=== PATIENT | female | born 1960 | race Caucasian/White ===

== ENCOUNTER 2019-06-24 20:15 | Inpatient (IN) | payer OTHER ==
[~2019-06-24] VITALS: Ht 165.1 cm; Wt 48.0 kg
[~2019-06-24 20:15] MED LIST: NO HOME MEDICATIONS; PREDNISONE10 MG PO
[2019-06-24 22:09] LABS: BASO # 0.1 (0.0-0.2); BASO % 0.4 % (0.0-2.0); EOS # 0.1 (0.0-0.7); EOS % 0.4 % (0-4.0); GRAN # 11.6 (1.4-6.5); GRAN % 89.3 % (42.2-75.2); HEMOGLOBIN 12.1 g/dl (12.5-16.0); LYMPH % 7.5 % (20.0-51.0); MEAN CELL VOLUME 98 fl (80.0-100.0); MEAN CORPUSCULAR HEMOGLOBIN 33 pg (27.0-31.0); MEAN CORPUSCULAR HGB CONC 33 g/dl (33.0-37.0); MEAN PLATELET VOLUME 10.5 fl (7.4-10.4); MONO # 0.2 (0.1-0.6); MONO % 1.7 % (1.7-9.3); PLATELET COUNT 387 K/mm3 (130-400); RED BLOOD COUNT 3.71 M/mm3 (4.10-5.30); REDCELL DISTRIBUTION WIDTH-CV 14.7 % (11.5-14.5)
[2019-06-24 22:13] LABS: ALBUMIN 3.9 gm/dL (3.5-5.0); BILIRUBIN,TOTAL 0.3 mg/dL (0.0-1.0); CALCIUM 9.3 mg/dL (8.4-10.2); CREATININE, serum 0.51 (0.52-1.25); TOTAL PROTEIN 7.1 gm/dL (6.4-8.2)
[2019-06-24 22:28] LABS: TROPONIN-I 0.607 ng/mL (0.000-0.035)
[2019-06-24 22:31] LABS: HEMATOCRIT 36.5 % (37.0-47.0)
[2019-06-24 23:36] LABS: ARTERIAL BLD GAS O2 SATURATION 94.6 % (92-100); ARTERIAL BLD GAS TCO2 CT 20.9; ARTERIAL BLOOD GAS BASE EXCESS -4.9 (-2-2); ARTERIAL BLOOD GAS HCO3 19.8 meq/L (22-26); ARTERIAL BLOOD GAS PCO2 35.7 mmHg (35-45); ARTERIAL BLOOD GAS PO2 73.5 mmHg (80-100); ARTERIAL BLOOD GAS pH 7.36 (7.35-7.45)
[2019-06-25] VITALS (836 sets, daily range): BP systolic 93–131; BP diastolic 69–105; PULSE 87–129; TEMP 97.2–98.2; O2SAT 87–100
--- NOTE | 2019-06-25 00:33 | NUR ---
Patient arrived on ER bed accompanied by ER nurse. Patient alert and asking questions related to POC. Denies pain. Vitals taken. Patient transferred bed-to-bed with the help of ER nurse, charge nurse, and self.
[2019-06-25 05:35] LABS: MUCOUS Present /lpf; PH 5 (5-8); URINE APPEARANCE Hazy; URINE BACTERIA None Seen /hpf; URINE BILIRUBIN Negative (NEGATIVE); URINE BLOOD Negative (NEGATIVE); URINE COLOR Yellow; URINE GLUCOSE Negative (NEGATIVE); URINE KETONE Trace (NEGATIVE); URINE LEUKOCYTE ESTERASE 1+ (NEGATIVE); URINE NITRATE Negative (NEGATIVE); URINE PROTEIN(semi-quant) Negative (NEGATIVE); URINE UROBILINOGEN Negative (NEGATIVE)
[2019-06-25 05:36] LABS: COLLECTION METHOD CLEAN CATCH
--- NOTE | 2019-06-25 06:18 | NUR ---
Vancomycin Initial Dosing Pharmacy Note Ordering provider: Mckay Núñez MD Indication/duration: 7 DAYS Relevant comorbidities: TOBACCO/METASTATIC DISEASE OR LUNG NODULE/ LABS: WBC 13/SCR 0.5/TROP0.9/LA2.5 Recommendation: Loading dose: 1GM Maintenance dose: 750 mg every 12 hours Trough goal: 15-20 ug/mL
--- NOTE | 2019-06-25 08:00 | NUR ---
Shift assessment complete at this time. Plan of care reviewed at bedside with patient at bedside. Additional time taken to address any other needs or concerns. Vitals stable at this time. Pt denies pain or any other discomfort. Bed in low position, call light within reach. Will continue to monitor.
--- NOTE | 2019-06-25 09:00 | NUR ---
R Thoracentesis completed at this time. Total of 1200 mL of fluid removed. Pt tolerated procedure well with no complaints, pain, or concerns raised throughout or after procedure. Vitals stable during procedure. Will continue to monitor post-procedure vitals per orders. Time-out performed prior to procedure start.
--- NOTE | 2019-06-25 09:42 | NUR ---
Initial visit; Folder Machine introduced herself to patient who thanked her for offering spiritual care.
--- NOTE | 2019-06-25 09:54 | NUR ---
Met with pt after her thoracentesis and follow up xray. She talked almost continually for 45 minutes about her life, her wishes, her family, and her cancer. Her 8 years ago of cancer (also a pt of Dr Peterson) and several family members of cancer between then and now. She reports that "I am not surprised that they think I have cancer--I have known that for a while". She has been dreading telling her grandchildren that she has cancer and will probably . She lives with her daughter and her boyfriend Brannon. Her daughter's children also live in the same house 11,14,19yr old. Her current concerns focus on how her family will react and providing them with support. Her son is in [place], retired from the . She does want to talk with her daughter about "code status" before making a decision. I did talk with her about a DPOA-HC and why it is something she may want to think about. She does believe that her daughter would be her decision maker she states. See consult.
[2019-06-25 09:59] LABS: PLEURAL FLUID RBC 1000 /mm3 (0-0); PLEURAL FLUID WBC 6107 /mm3
[2019-06-25 10:04] LABS: GLUCOSE,PLEURAL FLUID 140 mg/dL; TOTAL PROTEIN,PLEURAL FLUID 3.4 gm/dL
[2019-06-25 10:27] LABS: PLEURAL FLUID COLOR YELLOW
[2019-06-25 10:28] LABS: PLEURAL FLUID APPEARANCE HAZY
--- NOTE | 2019-06-25 12:00 | NUR ---
Pt sleeping comfortably in bed. Denies pain or any other discomforts. Vitals stable at this time. Bed in low position, call light within reach. Will continue to monitor.
--- NOTE | 2019-06-25 13:26 | NUR ---
Pt is asleep at this time with no other family in room. I will follow up on Friday.
--- NOTE | 2019-06-25 19:32 | NUR ---
Patient assessment completed and charted at this time, please see documentation for details. Patient resting in bed, denies any issues needed at this time. Patient states she would like to maximize rest tonight, will attempt to accomodate. Will continue to monitor.
--- NOTE | 2019-06-25 19:33 | NUR ---
Bedside report given to XENIA Smalls.
[2019-06-26] VITALS (784 sets, daily range): BP systolic 104–128; BP diastolic 59–104; PULSE 80–111; TEMP 97.5–97.8; O2SAT 78–100
[2019-06-26 05:27] LABS: BASO % 0.1 % (0.0-2.0); GRAN # 8.9 (1.4-6.5); GRAN % 86.7 % (42.2-75.2); HEMOGLOBIN 11.3 g/dl (12.5-16.0); LYMPH % 9.3 % (20.0-51.0); MEAN CELL VOLUME 96 fl (80.0-100.0); MEAN CORPUSCULAR HEMOGLOBIN 33 pg (27.0-31.0); MEAN CORPUSCULAR HGB CONC 34 g/dl (33.0-37.0); MEAN PLATELET VOLUME 10.9 fl (7.4-10.4); MONO # 0.4 (0.1-0.6); MONO % 3.6 % (1.7-9.3); PLATELET COUNT 323 K/mm3 (130-400); RED BLOOD COUNT 3.45 M/mm3 (4.10-5.30); REDCELL DISTRIBUTION WIDTH-CV 14.8 % (11.5-14.5)
[2019-06-26 05:28] LABS: HEMATOCRIT 33.2 % (37.0-47.0)
[2019-06-26 05:32] LABS: CALCIUM 9.3 mg/dL (8.4-10.2); CREATININE, serum 0.52 (0.52-1.25); POTASSIUM 4.3 mmol/L (3.4-5.0)
--- NOTE | 2019-06-26 08:20 | NUR ---
Report received from Slim MICHAELS and care resumed. Pt resting at this time per request. Will continue to follow.
--- NOTE | 2019-06-26 11:35 | NUR ---
Dr Núñez in to see pt at this time. Pt still trying to decide her plan of care and would like some more time. No concerns at this time. Will continue to follow.
--- NOTE | 2019-06-26 17:13 | NUR ---
AARTI follow-up with patient about decisions. DTR has not been in today to discuss options. Patient indicated that she does want "six" more months. Client reports that she has communicated with her DTR who has spoke with her son in [place] about her prognosis. DTR is Radha Chavarria. Patient reports that she may use comfort care but wants another day or two. Patient indicated that she could fight this. SW spoke with nurse and . inform that he spoke with patient and her DTR and let her know the serverity of her current status. Patient appears to be in denial about the health. Patient is observed as cycling through the stages of grief. Follow up recommed to support patients decision in end of life care. Patient reports that she does not have a PCP, Denies using any DME. Obtains medications from [facility]. Denies having any mobility concers, Denies having any issurance both health or life policy. Client briefly touched on possible in home hospice.
--- NOTE | 2019-06-26 19:14 | NUR ---
Report given to Jaclyn MICHAELS and care transfered.
--- NOTE | 2019-06-26 19:30 | NUR ---
After assisting onto bed sam, patient became more anxious and short of breath with exertion. Administered PRN ativan. HR 120's. Also requesting a breathing treatment; RT notified. Assisted with repositioning. Left chest mass open to air; Area is necrotic with blackened areas and slough.
--- NOTE | 2019-06-26 23:00 | NUR ---
Patient resting quietly in bed; no complaints or concerns at this time.
[2019-06-27] VITALS (102 sets, daily range): BP systolic 94–121; BP diastolic 73–98; PULSE 93–126; TEMP 97.5–98.7; O2SAT 93–99
[2019-06-27 06:12] LABS: BASO % 0.1 % (0.0-2.0); GRAN # 9.6 (1.4-6.5); GRAN % 84.9 % (42.2-75.2); HEMOGLOBIN 11.8 g/dl (12.5-16.0); LYMPH # 1.2 (1.2-3.4); LYMPH % 10.4 % (20.0-51.0); MEAN CELL VOLUME 98 fl (80.0-100.0); MEAN CORPUSCULAR HEMOGLOBIN 33 pg (27.0-31.0); MEAN CORPUSCULAR HGB CONC 33 g/dl (33.0-37.0); MONO # 0.5 (0.1-0.6); MONO % 4.2 % (1.7-9.3); PLATELET COUNT 319 K/mm3 (130-400); RED BLOOD COUNT 3.63 M/mm3 (4.10-5.30); REDCELL DISTRIBUTION WIDTH-CV 15.3 % (11.5-14.5)
[2019-06-27 06:15] LABS: HEMATOCRIT 35.5 % (37.0-47.0)
[2019-06-27 06:22] LABS: CALCIUM 9.3 mg/dL (8.4-10.2); CREATININE, serum 0.57 (0.52-1.25); POTASSIUM 4.4 mmol/L (3.4-5.0)
--- NOTE | 2019-06-27 07:15 | NUR ---
Report given to XENIA Chong. Patient care transfered.
--- NOTE | 2019-06-27 10:45 | NUR ---
Dr Núñez in to see pt at this time.
--- NOTE | 2019-06-27 11:56 | NUR ---
F/U: SW met with patient to follow up from presious meeting. Patient continues to be anxious about current condition and has not really thought about hospice care. Patient did report that her daughter Radha was coming down from [facility] to visit today. Patient reported that her daughter's phone number had recently changed and that she did not know if off hand.
--- NOTE | 2019-06-27 12:37 | NUR ---
Pt's son Chino, did finally call to speak with pt but pt not wanting to speak with him at this time. This was passed on to son and update was given per pt's ok.
--- NOTE | 2019-06-27 13:44 | NUR ---
Report called to Melania RN and pt taken by bed with tele to room 310. Bedside update given to Melania.
--- NOTE | 2019-06-27 13:45 | NUR ---
PT ADMITTED TO MEDICAL FLOOR AT THIS TIME.
--- NOTE | 2019-06-27 16:01 | NUR ---
PT DID TALK TO SON OVER THE PHONE BRIEFLY THIS AFTERNOON.
--- NOTE | 2019-06-27 16:21 | NUR ---
Plan: This SW first discussed Hospice with patient as it was indicated that patient has not been able to thinka bout planning future care. Medical nurse asked this SW later on if I had spoken to the ICU nurse about patients home living conditions. Nurse indicated that she was informed that patient had presented to the ER covered in feces, and that she had a mass on her shoulder that smelled bad. ICU nurse eventually bought pt to medical for further treatment, and this SW discussed concerns with nurse. Case wealth management manager was contacted and APS report was submitted.
--- NOTE | 2019-06-27 18:04 | NUR ---
PT TOOK A NAP THIS AFTERNOON. THIS NURSE IN TO GIVE SUPPER MEDS, PT REQUESTED A BREATHING TX AND AN ATIVAN. PLEASENT AND COOPERATIVE WITH CARES. STATED SHE CANT EAT VERY MUCH SUPPER DUE TO SOA, BUT WILL EAT HER BANANA THAT IS ON HER BEDSIDE TABLE.
--- NOTE | 2019-06-27 20:45 | NUR ---
INITIAL; PT LAYING IN BED. ASSESSMENT COMPLETE. PT STATES THAT SHE IS A BIT ANXIOUS, AND REQUESTED HER ATIVAN. MEDICATIONS GIVEN, PT IN A JOVIAL MOOD. NO OTHER CONCERNS AT THIS TIME.
[2019-06-28 04:27] VITALS: BP 105/60; PULSE 93; TEMP 98.7
[2019-06-28 08:02] VITALS: BP 107/77; PULSE 89; TEMP 97.9
--- NOTE | 2019-06-28 09:40 | NUR ---
AARTI attended clinical rounds. The hospitalist discussed the patient's prognosis and aggressive care vs comfort care. The patient reports that she is leaning towards comfort care, but would like to speak to her daughter, Radha, first. She states that Radha should be coming to the hospital today. AARTI then followed up with the patient. She confirmed the above information. She states she would be interested in the hospice house, but would still like to speak to her daughter, before moving forward. AARTI attempted to contact the patient's daughter. AARTI left a voicemail. The patient gave AARTI permission to contact her daughter's boyfriend, Brannon. SW attempted to contact Brannon. Brannon did not have a voicemail set up yet. Financial Counselor, Sreedhar, to meet with the patient today to complete a Medicaid celia. SW to continue to follow.
--- NOTE | 2019-06-28 09:44 | NUR ---
Spoke with pt this morning after she had eaten a small amount of breakfast. She reports that she eats slowly because of her breathing and it triggers a bowel movement. She reports that any kind of movement with repositioning is painful for her so she dreads using bedpan. She reports that she has heard that her son is coming here soon from [place]. She thinks that her daughter may be coming today--but not sure. She does report that she is thinking the "short-term plan" is what she wants. I asked her what that meant and she replied that she would want to go to the hospice house--knowing that she would be kept comfortable but would not have treatment for her canceror for her cataracts. She verbalized understanding. Currently she is a DNR. Support provided and she seems very comfortable with her decision at this time. Plan is for hospice house staff to come and talk with her today.
--- NOTE | 2019-06-28 10:38 | NUR ---
Pt assessment completed and charted. Pt denies pain at this time but states it "hurts to turn and be on bedpan". Denies SOB, on 3L NC. Denies chest pain, dizziness, N/V/D. Pt has poor appetite and hygiene. Pt has not ambulated this stay, will attempt bedside commode. Pt has LFA INT IV that flushes with no complications. Left chest/axilla area has open/necrotic wound, no drainage, covered with dressing, CDI. Medications administered per MAR, PRN ativan and tylenol administered per Pt request. Call light within reach. No other concerns voiced at this time.
[2019-06-28 12:23] VITALS: BP 120/80; PULSE 89; TEMP 97.5
--- NOTE | 2019-06-28 12:50 | NUR ---
Grandson and friend are here to visit but signs of daughter. Had requested visit from [facility] to discuss [facility] and did notifiy Sharon at [facility] that we will hope for a 3:30 meeting today. Will call them when daughter arrives. Pt is aware of this plan and agreeable.
--- NOTE | 2019-06-28 15:21 | NUR ---
Patient bladder scanned, 521 ml noted. pt assisted to bedside commode, voided 500ml. Family at bedside. Pt more awake and alert.
--- NOTE | 2019-06-28 15:25 | NUR ---
The patient's daughter, Radha, and Radha's boyfriend (Brannon) arrived at the hospital. AARTI then followed up with the patient, Radha, and Brannon and discussed the patient's decision of leaning towards hospice at the hospice house. The patient's daughter was supportive of this decision. The patient's daughter reports that she is unable to meet with hospice today, due to having to go citrus picker her child from school, but would be able to tomorrow. AARTI contacted Chito at [facility] and scheduled a meeting for tomorrow at 1100. The patient's daughter reports that 1100 will work. The patient gave AARTI permission to send a referral. AARTI faxed a referral to Chito at [facility]. AARTI awaiting their screen. The patient also completed a DPOA-HC. She designated her daughter, Radha, and Radha's boyfriend, Brannon. AARTI contacted Enid salazar. DPOA-HC was notarized. The patient was provided with the original and some copies. A copy was placed in the patient's chart. AARTI to continue to follow.
[2019-06-28 15:58] VITALS: BP 109/84; PULSE 103; TEMP 97
--- NOTE | 2019-06-28 18:14 | NUR ---
Pt finished dinner, requesting ativan and tylenol. PRN medications administered per NOV.
[2019-06-28 19:33] VITALS: BP 95/97; PULSE 102; TEMP 97.1
--- NOTE | 2019-06-28 20:05 | NUR ---
Shift assessment complete. Pt resting in bed, awake, a&o, cooperative c cares. Pt denies pain or other c/o at this time. INT patent. Tele in place. O2 per NC. Large necrotic mass noted to L breast/axilla, weaping. Pt denies further needs at this time. Call light in reach, bed alarm on. Will continue to monitor.
[2019-06-28 23:50] VITALS: BP 115/87; PULSE 91; TEMP 96.8
[2019-06-29 03:06] VITALS: BP 114/89; PULSE 83; TEMP 98.7
[2019-06-29 07:45] VITALS: BP 123/99; PULSE 93; TEMP 97.5
--- NOTE | 2019-06-29 09:27 | NUR ---
Met with pt this morning. She confirms that her daughter was here yesterday but could not stay to talk with [facility] so meeting was scheduled for 1100 today. Pt and daughter have both showed interest in hospice house but when asked this morning pt continues to state that she needs to think about it more and talk with daughter. I supported that this is a very important decision but that it is also one that she has been considering for several days and needs to reach a decision as to where she will go at discharge.
--- NOTE | 2019-06-29 11:16 | NUR ---
Pt assessment completed and charted. Pt states she has a "headache", requesting tylenol and ativan for anxiety. Pt states she gets a little short of breath moving around too much. Pt 1 assist to bedside commode, tolerating food and liquids fine. Pt on O2, satting well. LWR INT IV flushes with no complications. Left chest/axilla has necrotic wound, no drainage with dressing covering, CDI. No other concerns voiced by patient at this time. Call light within reach.
[2019-06-29 11:21] VITALS: BP 112/90; PULSE 95; TEMP 97.5
--- NOTE | 2019-06-29 11:47 | NUR ---
Pt met with Brannon from [facility] about [facility]. Her daughter was not able to be here when Brannon was here but he encouraged pt to have her call him when she can. Pt reports feeling nervous about going to a strange place but seems to be reassured after asking more questions. We are looking at a discharge tomorrow. Pt seen by Susan PIRES and denies further needs. Supportprovided as pt is making this decision.
--- NOTE | 2019-06-29 14:06 | NUR ---
AARTI received a voicemail from the patient's daughter, Radha. Radha reports that she would not be able to make it up to the hospital on time to meet with Brannon from [facility]. She states that she will be up at the hospital later. Brannon with [facility] did meet with the patient and palliative care nurse, Dorina. AARTI then collaborated with Dorina. The patient would like to transfer to [facility] tomorrow, 06/30. AARTI then contacted Chito at [facility]. Chito reports that they can accept the patient and that a transfer time of 1130 would work. AARTI informed the patient. The patient would still like to speak to her daughter. SW to continue to follow.
[2019-06-29 16:03] VITALS: BP 111/82; PULSE 93; TEMP 97.8
--- NOTE | 2019-06-29 16:22 | NUR ---
Chito, at [facility], asked SW what pharmacy the patient and her daughter would prefer between [facility] and [facility]. The patient's daughter arrived at the hospital. SW asked the patient and her daughter. The patient preferred [facility]. AARTI updated Chito. AARTI informed the patient's daughter of the preferred transfer time. The patient's daughter reports that she can be here at 1115. SW to continue to follow.
--- NOTE | 2019-06-29 17:12 | NUR ---
pt requesting tylenol and ativan. Pt feeling a little anxious about discharging to hospice house tomorrow. Per pt she also has a "headache since she hasn't had a cigarette in awhile". No other concerns voiced. Pt assisted to bedside commode.
[2019-06-29 19:29] VITALS: BP 104/81; TEMP 98.6
--- NOTE | 2019-06-29 19:40 | NUR ---
Shift assessment complete. Pt resting in bed, awake, a&o, cooperative c cares. Pt denies pain or other c/o at this time. INT patent. Pt denies needs. Call light in reach, will continue to monitor.
[2019-06-29 23:28] VITALS: BP 107/80; PULSE 92; TEMP 98.6
[2019-06-30 07:21] VITALS: BP 117/85; PULSE 91; TEMP 97.9
--- NOTE | 2019-06-30 10:03 | NUR ---
Pt assessment completed and charted. Pt sitting in bed eating breakfast. Pt says shes doing "ok" today, "anxious about going to hospice today". Denies chest pain, dizziness. C/O anxiety, mild headache (d/t not having coffee in awhile), and some SOB. LWR INT IV flushes w/ no complications. Morning medications administered per NOV. Ativan and tylenol adminsitered per Mar and pt request. No other concerns voiced at this time. Call light within reach.
--- NOTE | 2019-06-30 10:05 | NUR ---
Follow-up visit; Patient thanked Clinic Director for stopping and offering God's blessings.
--- NOTE | 2019-06-30 11:52 | NUR ---
Pt has agreed to go to [facility] with her daughter's support. I spoke with pt this am about her transfer, what to expect when she arrives, and that we are wishing her the best in this transition. Comfort quilt provided.
[2019-06-30 12:16] VITALS: BP 116/88; PULSE 90; TEMP 98.2
--- NOTE | 2019-06-30 12:54 | NUR ---
Chito, at [facility], contacted to inform that the patient's insurance did not get approved. She states that they recommended patient or family to contact [facility]. AARTI contacted casework specialist, Sheldon, at [facility]. Sheldon at [facility] referred SW to Harris Sorto ph#[phone]. AARTI contacted the patient's daughter to update and to have contact Jamel Sorto. The patient's daughter called that number and she states that she is now enrolled in hospice benefits. She provided with the patient's policy number. AARTI contacted and informed Chito at [facility]. SW awaiting to hear back.
[2019-06-30] MEDS ORDERED: MONODOX100 PO (13:59)
[2019-06-30] MEDS ORDERED: IPRATROPIUM BROM3 M1 IH (13:59)
[2019-06-30] MEDS ORDERED: COREG 6.256.25 MG/TA PO (13:59)
[2019-06-30] MEDS ORDERED: MEDROL 4MG DOSPA4 MG PO (14:00)
[2019-06-30] MEDS ORDERED: DULCOLAX S10 MG/SUPP RC (14:04)
[2019-06-30] MEDS ORDERED: TRANSDERM-0.5 MG/21 TD (14:04)
[2019-06-30] MEDS ORDERED: ATIVAN 1MG T1 MG/TAB PO (14:05)
[2019-06-30] MEDS ORDERED: ROXANOL 20MG20 MG/ML SL (14:05)
[2019-06-30] MEDS ORDERED: TYLENOL 325MG325 MG PO (14:06)
--- NOTE | 2019-06-30 15:14 | NUR ---
Chito, at [facility], reports that she received approval from the patient's insurance and that they are able to accept the patient today. AARTI informed the patient and the patient's daughter, Radha. They are both in agreeance to transfer there. Chito requested that AARTI fax the patient's scripts to [facility]. AARTI contacted and faxed the scripts to [facility]. The patient is to discharge today, 06/30, to [facility]. Transportation to be by private vehicle, via the patient's daughter, Radha. No additional needs at this time.
--- NOTE | 2019-06-30 16:16 | NUR ---
Pt discharged to [facility], report called to Anum at [facility]. pt LWR IV dc'd with no complications and catheter tip intact. Pt escorted out via WC by deon Rene and daughter. pt dc'd with hospitals O2 tank, on 2L NC. Daughter instructed to return tank and verbalized understanding. Attempted to wean pt off O2 for drive in private car. pt unable to keep sats about 90% over course of 20 min. No other concerns at this time.
== END 2019-06-30 16:18 | DRG 190 ==
LOC: COL.ER 20:15 → MEDICAL 23:20 → ICU 23:20 → MEDICAL 06-27 13:26
PROVIDERS: Emergency Medicine; Internal Medicine Pulmonary Disease; Nurse Practitioner Family; ADMIT Student in an Organized Health Care Education/Training Program
PROC: 0W990ZZ Drainage of Right Pleural Cavity, Open Approach (ICD-10-PCS; principal; 2019-06-25)
DX: J44.1 Chronic obstructive pulmonary disease with (acute) exacerbation (principal); I21.A1 Myocardial infarction type 2; E43 Unspecified severe protein-calorie malnutrition; C78.00 Secondary malignant neoplasm of unspecified lung; C79.51 Secondary malignant neoplasm of bone; E87.2 Acidosis; E87.1 Hypo-osmolality and hyponatremia; I50.22 Chronic systolic (congestive) heart failure; J90 Pleural effusion, not elsewhere classified; Z68.1 Body mass index [BMI] 19.9 or less, adult; R09.02 Hypoxemia; R06.03 Acute respiratory distress; R00.0 Tachycardia, unspecified; R73.9 Hyperglycemia, unspecified; D64.9 Anemia, unspecified; C50.919 Malignant neoplasm of unspecified site of unspecified female breast; F17.210 Nicotine dependence, cigarettes, uncomplicated; H54.7 Unspecified visual loss; H26.9 Unspecified cataract
CPT/HCPCS: 99223-AI; 99232-AI; 99233-AI; 99239; A9500; J1650; J1885; J2543; J2785; J2920; J3370; J7030; J7050; Q9967